=== PATIENT | female | born 1965 | race Caucasian/White ===

== ENCOUNTER 2023-10-07 06:25 | Day surgery (SDC) | payer OTHER ==
[~2023-10-07] VITALS: Ht 167.6 cm; Wt 69.9 kg
[2023-10-07 08:08] VITALS: O2SAT 100
[2023-10-07] MEDS ORDERED: MIDAZOLAM HCL 5 MG/5 ML VIAL ONE ×2 (08:13→08:39)
[2023-10-07] MEDS ORDERED: MEPERIDINE 100 MG INJ. 100 MG/ML VIAL ONE (08:13)
[2023-10-07] MEDS ORDERED: BENZOCAINE 20% 0.5mL UD SPRAY MM ONE (08:14)
[2023-10-07 13:47] VITALS: BP_SYST 96; PULSE 57; RESP 19
== END 2023-10-07 10:01 | disposition home or self-care (01) ==
LOC: SDS 06:25 → SMU 06:33 → SDS 10:01
PROVIDERS: ATTEND Internal Medicine
DX: K59.00 Constipation, unspecified (principal); K63.5 Polyp of colon; K29.50 Unspecified chronic gastritis without bleeding; K31.89 Other diseases of stomach and duodenum; R13.10 Dysphagia, unspecified; Z87.19 Personal history of other diseases of the digestive system; K64.8 Other hemorrhoids; F41.9 Anxiety disorder, unspecified; K21.9 Gastro-esophageal reflux disease without esophagitis; K44.9 Diaphragmatic hernia without obstruction or gangrene; Z79.899 Other long term (current) drug therapy; Z85.3 Personal history of malignant neoplasm of breast
CPT/HCPCS: 45380; 43248; 43239; 99152; 88305; 88312; 88313; 99153; J2250; J2175; C1769